=== PATIENT | female | born 1940 | race Caucasian/White ===

== ENCOUNTER 2021-04-02 16:41 | Emergency (ER) | payer MEDICARE, OTHER ==
[2021-04-02] MEDS ORDERED: DIPH,PERTUS(ACELL)TETVAC-LF 0.5 ML VIAL IM ONE (16:47)
[2021-04-02 16:52] LABS: Glucose,Whole Blood 201 mg/dL (75-99)
--- NOTE | 2021-04-02 17:01 | ED ---
General Adult HPI - General Chief complaint: Fall Stated complaint: Fall, head trauma, Altered Time Seen by Provider: 04/02/21 16:45 Source: patient, EMS, RN notes reviewed, old records reviewed Mode of arrival: EMS Limitations: no limitations - History of Present Illness Initial comments: This is an 80-year-old female presents emergency Department and apparently fell down some stairs. She was last seen at noon no nose when she fell down the stairs or how many stairs she fell down. According to EMS that was a full flight of stairs. Patient herself does not remember falling down stairs. Patient is alert and oriented 2 according to family she is normally alert and oriented 3. Patient has no complaints currently however when I press on her l eft side of her chest she does complain. She has an obvious hematoma to the left side of her forehead. No other history is available this time. - Related Data Allergies Allergy/AdvReac Type Severity Reaction Status Date / Time No Known Allergies Allergy Verified 04/02/21 16:57 Review of Systems ROS Statement: Those systems with pertinent positive or pertinent negative responses have been documented in the HPI. ROS Other: All systems not noted in ROS Statement are negative. Past Medical History Past Medical History: Unable to Obtain Past Surgical History: Unable to Obtain Smoking Status: Unknown if ever smoked Past Alcohol Use History: Unable to Obtain Past Drug Use History: Unable to Obtain General Exam - General Exam Comments Initial Comments: GENERAL: Patient is well-developed and well-nourished. Patient is nontoxic and well- hydrated and is in mild distress. Patient has a large hematoma to the left side of forehead with a very small puncture wound. ENT: Neck is soft and supple. No significant lymphadenopathy is noted. Oropharynx is clear. Moist mucous membranes. Neck has full range of motion without eliciting any pain. EYES: The sclera were anicteric and conjunctiva were pink and moist. Extraocular movements were intact and pupils were equal round and reactive to light. Eyelids were unremarkable. PULMONARY: Unlabored respirations. Good breath sounds bilaterally. No audible rales rhonchi or wheezing was noted. CARDIOVASCULAR: There is a regular rate and rhythm without any murmurs gallops or rubs. Patient's anterior and left lateral ribs are tender to palpation ABDOMEN: Soft and nontender with normal bowel sounds. SKIN: Skin is clear with no lesions or rashes and otherwise unremarkable. NEUROLOGIC: Patient is alert and oriented 2. Cranial nerves II through XII are grossly intact. Motor and sensory are also intact. Normal speech, volume and content. Symmetrical smile. MUSCULOSKELETAL: Normal extremities with adequate strength and full range of motion. LYMPHATICS: No significant lymphadenopathy is noted PSYCHIATRIC: Unable to evaluate Limitations: no limitations Course Vital Signs 04/02/21 04/02/21 16:44 18:05 Temperature 97.0 F L 98.1 F Pulse Rate 52 L 54 L Respiratory 18 16 Rate Blood Pressure 129/71 136/82 O2 Sat by Pulse 84 L 95 Oximetry Medical Decision Making - Medical Decision Making When I saw the patient I called this a libertarian to trauma and it was paged felt that way. X-ray of the chest showed a left clavicle fracture and old right-sided rib fr actures. Pelvis x-ray showed rami fractures. It also showed possible sacral fracture and possible acetabular fracture. Computed tomography scan showed a right basal ganglia intraparenchymal hemorrh age. C-spine showed a C7 vertebral body fracture in the C6-C7 lamina and spinous process fracture nondisplaced. CT of the chest abdomen pelvis showed an 81 compression fracture and L3 transverse process fracture which showed ribs 2 through 10 on the left fracture with 2 being fractured in 2 places. There is a left iliac bone fracture extending to the SI joints there is also a right sacral fracture extending to the SI joint. There is also a left clavicle fracture. I spoke with [facility] and [facility] were so trauma both of which accepted the transfer the patient. - Lab Data Result diagrams: 04/02/21 17:15 04/02/21 17:15 Lab Results 04/02/21 04/02/21 04/02/21 Range/Units 16:51 17:15 17:15 WBC 13.2 H (3.8-10.6) k/uL RBC 4.24 (3.80-5.40) m/uL Hgb 13.7 (11.4-16.0) gm/dL Hct 41.9 (34.0-46.0) % MCV 98.9 (80.0-100.0) fL MCH 32.3 (25.0-35.0) pg MCHC 32.7 (31.0-37.0) g/dL RDW 12.1 (11.5-15.5) % Plt Count 33 L (150-450) k/uL MPV 8.9 Neutrophils % 90 % Lymphocytes % 5 % Monocytes % 4 % Eosinophils % 1 % Basophils % 0 % Neutrophils # 11.9 H (1.3-7.7) k/uL Lymphocytes # 0.7 L (1.0-4.8) k/uL Monocytes # 0.5 (0-1.0) k/uL Eosinophils # 0.1 (0-0.7) k/uL Basophils # 0.0 (0-0.2) k/uL Manual Slide Review Performed Sodium 132 L (137-145) mmol/L Potassium 5.6 H (3.5-5.1) mmol/L Chloride 102 (98-107) mmol/L Carbon Dioxide 22 (22-30) mmol/L Anion Gap 8 mmol/L BUN 16 (7-17) mg/dL Creatinine 0.83 (0.52-1.04) mg/dL Est GFR (CKD-EPI)AfAm 76 (>60 ml/min/1.73 sqM) Est GFR (CKD-EPI)NonAf 66 (>60 ml/min/1.73 sqM) Glucose 247 H (74-99) mg/dL POC Glucose (mg/dL) 201 H (75-99) mg/dL POC Glu Car Distributor ID Andrey Talbot Calcium 8.5 (8.4-10.2) mg/dL Total Bilirubin 0.9 (0.2-1.3) mg/dL AST 53 H (14-36) U/L ALT 27 (4-34) U/L Alkaline Phosphatase 39 (38-126) U/L Troponin I (0.000-0.034) ng/mL Total Protein 5.8 L (6.3-8.2) g/dL Albumin 3.0 L (3.5-5.0) g/dL Serum Alcohol <10 mg/dL Blood Type Recheck Bld Type Recheck Status Spec Expiration Date 04/02/21 04/02/21 Range/Units 17:15 17:15 WBC (3.8-10.6) k/uL RBC (3.80-5.40) m/uL Hgb (11.4-16.0) gm/dL Hct (34.0-46.0) % MCV (80.0-100.0) fL MCH (25.0-35.0) pg MCHC (31.0-37.0) g/dL RDW (11.5-15.5) % Plt Count (150-450) k/uL MPV Neutrophils % % Lymphocytes % % Monocytes % % Eosinophils % % Basophils % % Neutrophils # (1.3-7.7) k/uL Lymphocytes # (1.0-4.8) k/uL Monocytes # (0-1.0) k/uL Eosinophils # (0-0.7) k/uL Basophils # (0-0.2) k/uL Manual Slide Review Sodium (137-145) mmol/L Potassium (3.5-5.1) mmol/L Chloride (98-107) mmol/L Carbon Dioxide (22-30) mmol/L Anion Gap mmol/L BUN (7-17) mg/dL Creatinine (0.52-1.04) mg/dL Est GFR (CKD-EPI)AfAm (>60 ml/min/1.73 sqM) Est GFR (CKD-EPI)NonAf (>60 ml/min/1.73 sqM) Glucose (74-99) mg/dL POC Glucose (mg/dL) (75-99) mg/dL POC Glu Car Distributor ID Calcium (8.4-10.2) mg/dL Total Bilirubin (0.2-1.3) mg/dL AST (14-36) U/L ALT (4-34) U/L Alkaline Phosphatase (38-126) U/L Troponin I <0.012 (0.000-0.034) ng/mL Total Protein (6.3-8.2) g/dL Albumin (3.5-5.0) g/dL Serum Alcohol mg/dL Blood Type Recheck No Previous Record Bld Type Recheck Status CABO Indicated Spec Expiration Date 04/05/2021 - 2314 Critical Care Time Critical Care Time: Yes Total Critical Care Time: 35 Disposition Clinical Impression: Fall, Intraparenchymal hemorrhage of brain, C7 cervical fracture, Fracture of multiple ribs of left side, Clavicle fracture, Compression fracture of L1 vertebra, Lumbar transverse process fracture, Sacral fracture, closed, Pubic ramus fracture, Fracture of iliac crest, Traumatic hematoma of forehead Disposition: OTHER INSTITUTION NOT DEFINED Referrals: Kolby Howell DO [Primary Care Provider] - 1-2 days Time of Disposition: 18:54 - Out of Hospital Transfer - Req. Specs Out of Hospital Transfer - Requested Specifics: Other Emergency Center ([facility])
--- NOTE | 2021-04-02 17:16 | XR ---
EXAMINATION TYPE: XR chest 1V portable DATE OF EXAM: 04/02/2021 COMPARISON: NONE HISTORY: Pain after fall downstairs TECHNIQUE: Single frontal view of the chest is obtained. FINDINGS: Cardiomediastinal silhouette appears within normal limits. Low lung volumes without dense focal conso lidation. No pleural effusion or definite pneumothorax. Multiple right-sided rib fractures are seen. Right total shoulder arthroplasty which may be dislocated. IMPRESSION: 1. Multiple right-sided rib fractures without definite pleural effusion or pneumothorax. 2. Right total shoulder arthroplasty which may be dislocated. Consider further evaluation with dedica asiya radiographs. 3. Low lung volumes without dense focal consolidation.
--- NOTE | 2021-04-02 17:20 | XR ---
EXAMINATION TYPE: XR pelvis AP view DATE OF EXAM: 04/02/2021 CLINICAL HISTORY: Pain after fall downstairs TECHNIQUE: A single AP view of the pelvis is obtained. COMPARISON: None. FINDINGS: Acute mildly displaced fracture of the left superior ramus and pubic body. Acute nondisplaced fractur e of the left inferior pubic ramus. Acute minimally displaced fracture of the left acetabulum. Sacrum is obscured by overlying bowel gas; however, there is possible nondisplaced fracture of the mi d left sacral ala. Right femoral hardware and chronic fracture deformity appear intact. Left proximal femur appears inta ct. IMPRESSION: 1. Acute mildly displaced left superior pubic ramus and pubic body fracture. 2. Acute nondisplaced left inferior pubic ramus fracture. 3. Acute minimally displaced left acetabular fracture. 4. Possible nondisplaced fracture of the left sacral ala.
[2021-04-02 17:37] LABS: Basophils % (A) 0 %; Eosinophils # (A) 0.1 k/uL (0-0.7); Eosinophils % (A) 1 %; HCT 41.9 % (34.0-46.0); HGB 13.7 gm/dL (11.4-16.0); Lymphocytes # (A) 0.7 k/uL (1.0-4.8); Lymphocytes % (A) 5 %; MCH 32.3 pg (25.0-35.0); MCHC 32.7 g/dL (31.0-37.0); MCV 98.9 fL (80.0-100.0); Mean Platelet Volume 8.9; Monocytes # (A) 0.5 k/uL (0-1.0); Monocytes % (A) 4 %; Neutrophils # (A) 11.9 k/uL (1.3-7.7); Neutrophils % (A) 90 %; RBC 4.24 m/uL (3.80-5.40); RDW 12.1 % (11.5-15.5); WBC 13.2 k/uL (3.8-10.6)
[2021-04-02 17:51] LABS: ALT 27 U/L (4-34); AST 53 U/L (14-36); African American GFR (CKD) 76 (>60 ml/min/1.73 sqM); Alcohol <10 mg/dL; Alkaline Phosphatase 39 U/L (38-126); Anion Gap 8 mmol/L; Blood Urea Nitrogen 16 mg/dL (7-17); Calcium 8.5 mg/dL (8.4-10.2); Carbon Dioxide 22 mmol/L (22-30); Chloride 102 mmol/L (98-107); Glucose 247 mg/dL (74-99); Non-African American GFR(CKD) 66 (>60 ml/min/1.73 sqM); Sodium 132 mmol/L (137-145); Total Bilirubin 0.9 mg/dL (0.2-1.3); Total Protein 5.8 g/dL (6.3-8.2)
[2021-04-02 17:52] LABS: Potassium 5.6 mmol/L (3.5-5.1)
--- NOTE | 2021-04-02 18:02 | CT ---
EXAMINATION TYPE: CT brain rosy ramires DATE OF EXAM: 04/02/2021 COMPARISON: None available HISTORY: fall, pain CT DLP: comboned DLP: 2527.2 mGycm. Automated Exposure Control for Dose Reduction was Utilized. TECHNIQUE: Multiple contiguous axial CT images of the head were performed from the skull base through the vertex without the administration of intravenous contrast. 2-D sagittal and coronal reformats were obtained . Multiple contiguous axial CT images of the cervical spine was performed from the skull bases through the lung apices without the administration of intravenous contrast. 2-D sagittal and coronal reformat s were obtained. FINDINGS: Head: Focal area of increased attenuation within the right basal ganglia measuring 10 mm in the axial plane , most consistent with acute intraparenchymal hemorrhage. No mass effect or midline shift. The ventri cles and sulci are within normal limits in size. Solorio-white differentiation is preserved. No CT evide nce of acute large vessel territorial ischemia. Moderate to advanced decreased attenuation of the per iventricular and deep white matter likely sequela of chronic small vessel ischemic change. Moderate left frontal scalp hematoma. Calvarium appears intact. Partially visualized paranasal sinuse s and mastoid air cells are clear. Bilateral lens extractions are present. C-spine: Acute fracture involving the anterior inferior endplate of the C7 vertebral body with associated para vertebral soft tissue swelling. There is nondisplaced fracture involving the C7 lamina extending to t he C7 spinous process. There is a nondisplaced fracture involving the bilateral lamina and spinous pr ocess of C6. Advanced multilevel degenerative changes of the cervical spine with degenerative osseous fusion of th e right C3-C4 facet. There is no spinal canal stenosis. There is varying degrees of neural foraminal narrowing secondary to facet arthropathy and uncovertebral hypertrophy most pronounced at the level o f C3-4 on the right which appears moderate. IMPRESSION: CT HEAD: 1. Acute intraparenchymal hemorrhage of the right basal ganglia. 2. Moderate left frontal scalp hematoma. 3. Moderate to advanced chronic small vessel ischemic change. CT C-SPINE: 1. Acute minimally displaced fracture of the anterior inferior endplate of the C7 vertebral body with associated paravertebral soft tissue swelling. There is additional nondisplaced fracture of the C7 l manda and spinous process. 2. Acute nondisplaced fracture of the bilateral lamina and spinous process of C6. Findings discussed with Dr. Real, ER physician, by Dr. Wasserman via telephone at 1800 on 04/02/2021
--- NOTE | 2021-04-02 18:20 | CT ---
EXAMINATION TYPE: CT ChestAbdPelvis w con DATE OF EXAM: 04/02/2021 COMPARISON: Chest radiograph and pelvis radiograph same day HISTORY: pain from fall CT DLP: 2527.2 mGycm. Automated Exposure Control for Dose Reduction was Utilized. TECHNIQUE: Multiple contiguous axial CT images of the chest, abdomen, and pelvis were obtained from t he lung apices through the pubic symphysis without the administration of intravenous contrast. 2-D sa gittal and coronal reformatted images were obtained. FINDINGS: Chest: Cardiac size appears within normal limits. No pericardial effusion. Thoracic aorta and main pulmonary arteries are of normal caliber. No mediastinal or axillary lymphadenopathy. Central airways are normal course and caliber. Lungs appear clear. No pleural effusion or pneumothora x. No suspicious pulmonary nodules. Abdomen/pelvis: Liver, spleen, pancreas, and bilateral adrenal glands have an unremarkable unenhanced appearance. Gallbladder is present. No definite intrahepatic or extrahepatic biliary ductal dilatation. Kidneys are symmetric in size without hydronephrosis. No renal or ureteral calculi. 5.2 cm left renal cyst. Urinary bladder appears unremarkable. Uterus is absent. No adnexal masses. No free fluid. Visualized bowel is of normal caliber without evidence of obstruction. No significant mesenteric infl ammation. Scattered colonic diverticulosis without adjacent inflammatory changes. Small right inguina l hernia containing portions of bowel. Appendix appears unremarkable. No free air. Abdominal aorta is of normal caliber. No intra-abdominal or retroperitoneal lymphadenopathy. Subcutan eous soft tissues appear unremarkable. Musculoskeletal: Right shoulder total arthroplasty. Mildly displaced comminuted proximal left clavicular fracture. Multiple chronic appearing posterior right-sided rib fractures involving ribs 4-11. Acute mildly disp laced anterolateral and lateral left rib fractures involving left ribs 2-10. Additionally there is a nondisplaced posterior left rib 2 fracture. Moderate levoscoliotic curvature of the thoracolumbar chain. Nondisplaced left L3 transverse process fracture. Moderate anterior compression deformity of the L1 vertebral body without retropulsion. Grade 1 nathan listhesis of L4-5 secondary to advanced facet arthropathy. Comminuted left iliac bone fracture extending to the sacroiliac joint. There is moderate adjacent inf lammation within the adjacent soft tissues involving the left iliacus muscle and left gluteal muscula ture. Nondisplaced comminuted left pubic body fracture. Nondisplaced comminuted right pubic body frac ture. Nondisplaced fracture involving the right sacral alar extending to the sacroiliac joint lateral to th e sacral foramina. IMPRESSION: 1. Comminuted left iliac bone fracture extending to the sacroiliac joint. Nondisplaced comminuted fra ctures of the right and left pubic bodies. Nondisplaced fracture of the right sacral ala lateral to t he sacral foramina extending to the sacroiliac joint. 2. Multiple acute left-sided rib fractures without pneumothorax. Acute comminuted proximal left clavi celia fracture. 3. Moderate anterior compression deformity of L1 vertebral body and acute nondisplaced left L3 transv erse process fracture. 3. No evidence of traumatic aortic injury or mediastinal hematoma. 4. No evidence of visceral or solid organ injury within the abdomen or pelvis.
[2021-04-02 18:24] LABS: Platelet Count 33 k/uL (150-450)
[2021-04-02 18:39] VITALS: BP 136/82; PULSE 54; RESP 16; TEMP 98.1
[2021-04-02 19:24] LABS: INR 1.1 (<1.2); Prothrombin Time 11.1 sec (9.0-12.0)
[2021-04-02 19:46] LABS: Partial Thromboplastin Time 21.9 sec (22.0-30.0)
== END 2021-04-02 19:43 | disposition other institution (70) ==
LOC: EC 16:41 → SUPCPDRO 16:41 → EC 19:43
DX: S12.690A Other displaced fracture of seventh cervical vertebra, initial encounter for closed fracture (principal); S22.42XA Multiple fractures of ribs, left side, initial encounter for closed fracture; S42.002A Fracture of unspecified part of left clavicle, initial encounter for closed fracture; S32.010A Wedge compression fracture of first lumbar vertebra, initial encounter for closed fracture; S32.19XA Other fracture of sacrum, initial encounter for closed fracture; S32.599A Other specified fracture of unspecified pubis, initial encounter for closed fracture; S32.309A Unspecified fracture of unspecified ilium, initial encounter for closed fracture; I61.8 Other nontraumatic intracerebral hemorrhage; W10.8XXA Fall (on) (from) other stairs and steps, initial encounter
CPT/HCPCS: 99291; 90471; 36415; 86900; 86901; 80053; 84484; 85025; 85610; 85730; 86850; 80320; 87635; 72170; 71045; 72125; 70450; 71260; 74177; 90715; Q9967